=== PATIENT | female | born 1955 | race Caucasian/White ===

== ENCOUNTER 2017-10-18 12:37 | Emergency (ER) | payer MEDICARE, MEDICAID ==
[~2017-10-18] VITALS: Ht 165.1 cm; Wt 64.0 kg
[2017-10-18] MEDS ORDERED: ATEN-42 MT (12:49)
[2017-10-18] MEDS ORDERED: AMLO5TAB88 MT (12:49)
[2017-10-18] MEDS ORDERED: ATOR10TA69 MT (12:49)
[2017-10-18] MEDS ORDERED: FLUO40CA49 MT (12:49)
[2017-10-18 14:55] VITALS: BP 151/79
== END 2017-10-18 14:58 | disposition home or self-care (01) ==
LOC: ER 12:37
DX: I10 Essential (primary) hypertension (principal); Z88.0 Allergy status to penicillin
CPT/HCPCS: 99281

== ENCOUNTER 2020-02-21 15:11 | Emergency (ER) | payer MEDICARE, MEDICAID ==
[~2020-02-21] VITALS: Ht 170.2 cm; Wt 57.0 kg
[~2020-02-21 15:11] MED LIST: AMLO5TAB88 MT; ATEN-42 MT; ATOR10TA69 MT; FLUO40CA49 MT
[2020-02-21] MEDS ORDERED: CHLO25TA2 PO (15:18)
[2020-02-21] MEDS ORDERED: FLUO20TA29 PO (15:20)
[2020-02-21] MEDS ORDERED: NITROGLYCERIN OINT 1GM/INCH UDPKT TD ONE (16:00)
[2020-02-21] MEDS ORDERED: ASPIRIN 81MG TABLET PO ONE (16:00)
[2020-02-21 16:15] LABS: BASOPHILS % 0.3 % (0.0-2.0); EOSINOPHILS % 0.3 % (0.0-5.0); HEMATOCRIT. 39.1 % (36.0-48.0); HEMOGLOBIN. 12.7 g/dL (12.0-16.0); MEAN CORPUSCULAR HEMOGLOBIN 26.4 pg (28.0-32.0); MEAN PLATELET VOLUME 9.4 fl (7.4-10.4); MONOCYTES % 4.3 % (2.0-8.0); NEUTROPHILS % 73.1 % (40.0-76.0); PLATELET 265 x1000/uL (130-400); RED BLOOD CELL COUNT 4.83 mill/uL (4.2-5.4); RED CELL DISTRIBUTION WIDTH 13.9 % (11.6-14.6)
[2020-02-21 16:18] LABS: CHLORIDE 98 mEq/L (98-107)
[2020-02-21 19:20] VITALS: BP 140/78
== END 2020-02-21 21:24 | disposition home or self-care (01) ==
LOC: ER 15:11 → CANBEDREQ 02-22 05:54
DX: R07.89 Other chest pain (principal); E87.6 Hypokalemia; F32.9 Major depressive disorder, single episode, unspecified; E11.9 Type 2 diabetes mellitus without complications; I10 Essential (primary) hypertension; Z79.899 Other long term (current) drug therapy; Z88.0 Allergy status to penicillin
CPT/HCPCS: 36415; 71045; 80053; 83880; 84484; 85025; 93005; 99285

== ENCOUNTER 2021-07-06 19:08 | Inpatient (IN) | payer BC, MEDICAID, MEDICARE ==
[~2021-07-06] VITALS: Ht 165.1 cm; Wt 59.9 kg
[~2021-07-06 19:08] MED LIST changes: +CHLO25TA2 PO; +FLUO20TA29 PO
[2021-07-06] MEDS ORDERED: MORPHINE SULFATE 4 MG/ML CPJ (NOT FOR IM USE) IV STA (19:16)
[2021-07-06] MEDS ORDERED: NITROGLYCERIN 0.4MG TABLET SL SL PRN (19:30)
[2021-07-06] MEDS ORDERED: ASPIRIN 81MG TABLET PO ONE (19:30)
[2021-07-06 20:47] LABS: BASOPHILS % 0.3 % (0.0-2.0); EOSINOPHILS % 0.6 % (0.0-5.0); HEMATOCRIT. 39.2 % (36.0-48.0); HEMOGLOBIN. 12.9 g/dL (12.0-16.0); LYMPHOCYTES % 15.3 % (20.0-50.0); MEAN CORPUSCULAR HEMOGLOBIN 26.3 pg (28.0-32.0); MEAN CORPUSCULAR VOLUME 80.2 fL (81.0-99.0); MEAN PLATELET VOLUME 9.9 fl (7.4-10.4); MONOCYTES % 4.5 % (2.0-8.0); NEUTROPHILS % 79.3 % (40.0-76.0); PLATELET 252 x1000/uL (130-400); RED BLOOD CELL COUNT 4.89 mill/uL (4.2-5.4)
[2021-07-06 20:57] LABS: CHLORIDE 106 mEq/L (98-107)
[2021-07-06 21:01] LABS: ETHANOL BLOOD < 10 mg/dL
[2021-07-07 03:09] VITALS: BP 157/72
[2021-07-07] MEDS ORDERED: ACETAMINOPHEN 325MG TABLET PO PRN (06:00)
[2021-07-07 08:00] VITALS: BP 128/54
[2021-07-07] MEDS ORDERED: LORA10TA7 PO (08:53)
[2021-07-07] MEDS ORDERED: HYDR12.54 PO (08:53)
[2021-07-07] MEDS ORDERED: LISI20TA31 PO (08:53)
[2021-07-07] MEDS ORDERED: OMEP20CA14 MT (08:56)
[2021-07-07] MEDS ORDERED: METOPROLOL SUCCINATE 50MG ER TABLET PO SCH (09:00)
[2021-07-07] MEDS ORDERED: ASPIRIN 81MG TABLET PO SCH (09:00)
[2021-07-07] MEDS ORDERED: AMLODIPINE 10MG TABLET PO SCH (09:00)
[2021-07-07] MEDS ORDERED: ENOXAPARIN 40MG/0.4ML SYR SUBCUT SCH (09:00)
[2021-07-07 10:38] LABS: BASOPHILS % 0.2 % (0.0-2.0); EOSINOPHILS % 0.8 % (0.0-5.0); HEMATOCRIT. 39.1 % (36.0-48.0); HEMOGLOBIN. 12.7 g/dL (12.0-16.0); MEAN CORPUSCULAR HEMOGLOBIN 26.3 pg (28.0-32.0); MEAN CORPUSCULAR VOLUME 80.8 fL (81.0-99.0); MEAN PLATELET VOLUME 9.3 fl (7.4-10.4); MONOCYTES % 6.3 % (2.0-8.0); NEUTROPHILS % 69.7 % (40.0-76.0); PLATELET 232 x1000/uL (130-400); RED BLOOD CELL COUNT 4.83 mill/uL (4.2-5.4); RED CELL DISTRIBUTION WIDTH 13.2 % (11.6-14.6)
[2021-07-07 10:44] LABS: CHLORIDE 105 mEq/L (98-107)
[2021-07-07 10:50] LABS: LDL CHOLESTEROL 94 mg/dL (5-100)
[2021-07-07 10:52] LABS: HDL CHOLESTEROL 50 mg/dL (40-59)
[2021-07-07] MEDS ORDERED: METOPROLOL TARTRATE 50MG TABLET PO SCH (11:30)
[2021-07-07 11:59] LABS: *BARBITURATES SCREEN URINE NEGATIVE (NEGATIVE); *BENZODIAZEPINES SCREEN URINE NEGATIVE (NEGATIVE); *COCAINE SCREEN URINE NEGATIVE (NEGATIVE)
[2021-07-07 12:00] VITALS: BP 138/62
[2021-07-07 12:00] LABS: *AMPHETAMINES SCREEN URINE NEGATIVE (NEGATIVE); CANNABINOID URINE SCREEN NEGATIVE (NEGATIVE); METHADONE URINE SCREEN NEGATIVE (NEGATIVE); OPIATES URINE SCREEN NEGATIVE (NEGATIVE); PHENCYCLIDINE URINE SCREEN NEGATIVE (NEGATIVE)
[2021-07-07 16:00] VITALS: BP 131/65
[2021-07-07] MEDS ORDERED: AMLO10TA80 PO (18:34)
[2021-07-07 19:24] VITALS: BP 132/85
[2021-07-07] MEDS ORDERED: ATORVASTATIN CALCIUM 40MG TABLET PO SCH (21:00)
== END 2021-07-07 20:30 | disposition home or self-care (01) | DRG 206 ==
LOC: ER 19:08 → MICUSO 23:43 → 7EST 07-07 02:16
PROVIDERS: ADMIT Internal Medicine; ATTEND Internal Medicine
DX: M94.0 Chondrocostal junction syndrome [Tietze] (principal); I10 Essential (primary) hypertension; E78.5 Hyperlipidemia, unspecified; F32.A Depression, unspecified; E11.9 Type 2 diabetes mellitus without complications; E78.00 Pure hypercholesterolemia, unspecified; Z88.0 Allergy status to penicillin; Z79.899 Other long term (current) drug therapy; Z82.49 Family history of ischemic heart disease and other diseases of the circulatory system; Z83.3 Family history of diabetes mellitus
CPT/HCPCS: 36415; 71045; 80048; 80053; 80061; 80305; 80320; 83036; 83880; 84484; 85025; 93005; 93306; 99285; J1650; G0480

== ENCOUNTER 2022-09-07 22:21 | Emergency (ER) | payer MEDICARE, MEDICAID ==
[~2022-09-07] VITALS: Ht 165.1 cm; Wt 61.7 kg
[~2022-09-07 22:21] MED LIST changes: +AMLO10TA80 PO; -AMLO5TAB88 MT; -CHLO25TA2 PO; -FLUO20TA29 PO; -FLUO40CA49 MT; +HYDR12.54 PO; +LORA10TA7 PO; +OMEP20CA14 MT
[2022-09-08 00:27] LABS: CHLORIDE 103 mEq/L (98-107)
[2022-09-08 00:30] LABS: BASOPHILS % 0.1 % (0.0-2.0); EOSINOPHILS % 0.3 % (0.0-5.0); HEMATOCRIT. 39.6 % (36.0-48.0); LYMPHOCYTES % 13.5 % (20.0-50.0); MEAN CORPUSCULAR HEMOGLOBIN 26.6 pg (28.0-32.0); MEAN CORPUSCULAR VOLUME 80.9 fL (81.0-99.0); MEAN PLATELET VOLUME 9.4 fl (7.4-10.4); MONOCYTES % 4.7 % (2.0-8.0); NEUTROPHILS % 81.4 % (40.0-76.0); PLATELET 264 x1000/uL (130-400); RED BLOOD CELL COUNT 4.89 mill/uL (4.2-5.4); RED CELL DISTRIBUTION WIDTH 13.6 % (11.6-14.6)
[2022-09-08] MEDS ORDERED: LABETALOL HCL 100MG TABLET PO ONE (02:30)
[2022-09-08 03:45] VITALS: BP 156/76
== END 2022-09-08 03:47 | disposition home or self-care (01) ==
LOC: ER 22:21
DX: I10 Essential (primary) hypertension (principal); R42 Dizziness and giddiness; F32.9 Major depressive disorder, single episode, unspecified; E11.9 Type 2 diabetes mellitus without complications; Z79.899 Other long term (current) drug therapy; Z88.0 Allergy status to penicillin
CPT/HCPCS: 36415; 80053; 85025; 93005; 99284

== ENCOUNTER 2023-06-25 21:05 | Emergency (ER) | payer MEDICARE, MEDICAID ==
[~2023-06-25] VITALS: Ht 170.2 cm; Wt 64.0 kg
[2023-06-25 21:42] VITALS: O2SAT 98
[2023-06-26 01:01] LABS: BASOPHILS % 0.1 % (0.0-2.0); EOSINOPHILS % 0.3 % (0.0-5.0); HEMATOCRIT. 40.9 % (36.0-48.0); HEMOGLOBIN. 13.4 g/dL (12.0-16.0); LYMPHOCYTES % 16.2 % (20.0-50.0); MEAN CORPUSCULAR HEMOGLOBIN 26.6 pg (28.0-32.0); MEAN CORPUSCULAR HGB CONC 32.7 g/dL (31.0-37.0); MEAN CORPUSCULAR VOLUME 81.3 fL (81.0-99.0); MEAN PLATELET VOLUME 9.4 fl (7.4-10.4); MONOCYTES % 5.4 % (2.0-8.0); PLATELET 249 x1000/uL (130-400); RED BLOOD CELL COUNT 5.03 mill/uL (4.2-5.4); RED CELL DISTRIBUTION WIDTH 13.7 % (11.6-14.6); WHITE BLOOD COUNT 10.5 x1000/uL (4.5-11.0)
[2023-06-26 01:10] LABS: CLARITY URINE CLEAR (CLEAR); COLOR URINE YELLOW (YELLOW); GLUCOSE URINE NEGATIVE (NEGATIVE); KETONES URINE NEGATIVE (NEGATIVE); LEUKOCYTE ESTERASE URINE 1+ (NEGATIVE); NITRITE URINE NEGATIVE (NEGATIVE); OCCULT BLOOD URINE NEGATIVE (NEGATIVE); PH URINE 5.5 (4.5-8.0); PROTEIN URINE NEGATIVE (NEGATIVE); SPECIFIC GRAVITY URINE 1.006 (1.005-1.030); UROBILINOGEN URINE 0.2 E.U./dL (0.2-1.0)
[2023-06-26 01:30] LABS: ALANINE AMINOTRANSFERASE 11 IU/L (10-49); ALBUMIN 5.3 g/dL (3.2-4.8); ASPARTATE AMINOTRANSFERASE 16 IU/L (<34); BILIRUBIN TOTAL 0.5 mg/dL (0.1-1.0); CALCIUM 10.3 mg/dL (8.7-10.4); CARBON DIOXIDE 29 mEq/L (21-32); CHLORIDE 103 mEq/L (98-107); CREATININE 0.8 mg/dL (0.6-1.0); GLUCOSE 143 mg/dL (70-105); POTASSIUM 3.7 mEq/L (3.5-5.1); PROTEIN TOTAL 8.9 g/dL (6.0-8.3); SODIUM 141 mEq/L (136-145); UREA NITROGEN BLOOD 10 mg/dL (9-23)
[2023-06-26 02:03] LABS: RBC URINE NONE SEEN /hpf (0-2); SQUAMOUS EPITHELIAL CELL URINE NONE SEEN /lpf (RARE/1+); WBC URINE NONE SEEN /hpf (0-2)
[2023-06-26 02:04] LABS: BACTERIA URINE NONE SEEN
[2023-06-26 02:06] LABS: TROPONIN I HIGH SENSITIVITY < 4 ng/L (3.0-34)
[2023-06-26 04:17] VITALS: BP 142/62; PULSE 82; RESP 12; TEMP 98.3
== END 2023-06-26 04:19 | disposition home or self-care (01) ==
LOC: ER 21:14
DX: I10 Essential (primary) hypertension (principal); E11.9 Type 2 diabetes mellitus without complications; Z98.890 Other specified postprocedural states; Z88.0 Allergy status to penicillin
CPT/HCPCS: 36415; 80053; 81003; 84484; 85025; 93005; 99284